=== PATIENT | male | born 1950 | race Caucasian/White ===

== ENCOUNTER → 2016-08-09 | Outpatient (CLI) | payer BC ==
--- NOTE | 2016-08-09 13:08 | MR ---
EXAMINATION TYPE: MR lumbar spine wo con DATE OF EXAM: 08/09/2016 10:56 AM COMPARISON: NONE HISTORY: lumbago CONTRAST: 0 mL intravenous MultiHance. TECHNIQUE: Multiplanar, multisequence images of the lumbar spine were acquired. FINDINGS: L5-S1: No significant disc bulge or disc herniation. No spinal canal stenosis. No foraminal stenosi s. . L4-L5: No significant disc bulge or disc herniation. No spinal canal stenosis. No foraminal stenosi s. . L3-L4: No significant disc bulge or disc herniation. No spinal canal stenosis. No foraminal stenosi s. . L2-L3: No significant disc bulge or disc herniation. No spinal canal stenosis. No foraminal stenosi s. . L1-L2: There is loss of disc height is level. No spinal canal stenosis. No foraminal stenosis. . T12-L1: Mild disc space narrowing is present is level. The cord terminates at the T12 level No spina l canal stenosis. No foraminal stenosis. . IMPRESSION: 1. Mild degenerative disc changes with loss of disc height T12-L1 and L1-2.
== END | disposition home or self-care (01) ==
LOC: RADMRIMAIN 10:16
PROVIDERS: ATTEND Psychiatry & Neurology Neurology
DX: M51.35 Other intervertebral disc degeneration, thoracolumbar region (principal)
CPT/HCPCS: 72148

== ENCOUNTER 2017-10-14 13:30 | Inpatient (IN) | payer BC ==
[2017-10-14] MEDS ORDERED: LIDOCAINE 2% INJ 20 MG/ML (20 ML MDV) ONE (17:15)
[2017-10-14] MEDS ORDERED: HEPARIN SODIUM,PORCINE 30 ML 30 ML ONE (17:16)
[2017-10-14 17:27] LABS: Glucose,Whole Blood 233 mg/dL (75-99)
[2017-10-14] MEDS ORDERED: ASPIRIN 325 MG TAB PO ONE (17:30)
[2017-10-14] MEDS ORDERED: VERAPAMIL 2.5 MG/ML 2 ML AMP ONE (17:37)
[2017-10-14] MEDS ORDERED: MIDAZOLAM 2 MG/2 ML VIAL ONE (17:37)
[2017-10-14] MEDS ORDERED: HEPARIN SODIUM 1,000 UN/ML (10ML VL) ONE (17:38)
[2017-10-14] MEDS ORDERED: SODIUM CHLORIDE 0.9% 1,000 ML IV ONE (17:42)
[2017-10-14] MEDS ORDERED: MIDAZOLAM 2 MG/2 ML VIAL IVP ONE (17:49)
[2017-10-14] MEDS ORDERED: LIDOCAINE 2% INJ 20 MG/ML SQ ONE (17:49)
[2017-10-14] MEDS ORDERED: HEPARIN SODIUM 1,000 UN/ML (10ML VL) IV ONE (17:52)
[2017-10-14] MEDS ORDERED: VERAPAMIL SYRINGE (5 MG/10 ML) INTRAARTER ONE (17:52)
[2017-10-14] MEDS ORDERED: RX INFO: IV CONTRAST WAS GIVEN 1 EACH MISC MISCELLANE PRN (18:13)
[2017-10-14] MEDS ORDERED: SODIUM CHLORIDE 0.9% 1,000 ML IV SCH (18:15)
[2017-10-14] MEDS ORDERED: IOPAMIDOL-370 125ML BTL INJ ONE (18:16)
[2017-10-14 18:55] VITALS: BMI 29.6
--- NOTE | 2017-10-14 19:27 | CC ---
CARDIAC CATHETERIZATION REPORT DATE OF SERVICE: 10/14/2017 PERFORMING PHYSICIAN: Miller Hogan MD PROCEDURES PERFORMED: 1. Selective right and left coronary angiogram. 2. Left heart catheterization. INDICATION: This is a pleasant 67-year-old gentleman who sees Dr. Gomez in the office on a regular basis with a past medical history significant for coronary artery disease and known intermediate lesion involving the mid LAD based on heart catheterization that was performed in 2014. The FFR was performed at that point and came in to be non-ischemic at 0.84. He also has multiple comorbid conditions, including diabetes, hypertension and dyslipidemia. He was admitted to [facility] with shortness of breath and chest discomfort. He was experiencing exertional chest discomfort even with minimal activity. In view of that, heart catheterization was recommended. APPROACH: Right radial artery. COMPLICATIONS: None. LEVEL OF SEDATION: Moderate with sedation length of 21 minutes. PROCEDURE DESCRIPTION: After obtaining informed consent, the patient was brought to the cardiac dairy and food laboratory assistant. The right radial artery was cannulated using micropuncture technique. The micropuncture wire passed easily. Then I placed a 6-Stateless sheath in the right radial artery. After that I gave the patient 2 mg of verapamil IA and 8000 units of heparin IV. I did selective right and left coronary angiogram using JR4 and JL3.5 catheters. I did left heart catheterization using 6-Stateless pigtail catheter. The procedure was completed without any complication. SELECTIVE CORONARY ANGIOGRAM: 1. The RCA is a large-caliber vessel and it is a dominant vessel. The proximal RCA appeared to be angiographically normal. The mid RCA is normal and gives rise to a medium-sized acute marginal branch. The RCA distally is normal and bifurcates into PDA and PLV branches. Both are angiographically normal. 2. The left main is angiographically normal but it is a short left main. It bifurcates into left circumflex, ramus intermedius and left anterior descending artery. 3. The left circumflex is a medium-caliber vessel and it is a non-dominant vessel. The left circumflex has mild disease in the mid portion. Proximally it gives rise to the first obtuse marginal branch, which is a medium-caliber vessel with mild disease only. In the mid portion it gives rise to a second OM branch, which is a moderate-caliber vessel with mild to moderate disease in the proximal portion. The left circumflex continues after that as a small-caliber vessel in the AV groove. 4. The ramus intermedius is a medium-caliber vessel with mild disease only. 5. The LAD: The proximal LAD is angiographically normal and gives rise to a large first diagonal branch seems to be angiographically normal. The mid LAD has a lesion that seems to be eccentric, in the range of 50%. The LAD by that lesion gives rise to a second diagonal branch which is a moderate-caliber vessel with mild disease only, and the LAD distally is angiographically normal. HEMODYNAMICS: The left ventricular end-diastolic pressure was 20 mmHg, and no gradient was identified across the aortic valve. CONCLUSION: 1. Intermediate disease involving the mid LAD that seems to be unchanged compared to before angiographically. 2. Elevated left ventricular end-diastolic pressure. POST-PROCEDURE MANAGEMENT: 1. Continue maximized medical treatment. 2. Start the patient on oral . 3. Follow up with the patient. MMODL / IJN: [id number] /
[2017-10-14 20:39] LABS: Glucose,Whole Blood 133 mg/dL (75-99)
[2017-10-14] MEDS: Insulin Aspart (For Pump) 100 UNIT/ML VIAL SQ-PUMP SCH (23:44)
[2017-10-15] MEDS: ALBUTEROL NEBULIZED 2.5 MG/3 ML INHALATION PRN ×2 (03:16→08:46)
[2017-10-15 06:04] LABS: Glucose,Whole Blood 120 mg/dL (75-99)
[2017-10-15] MEDS: PANTOPRAZOLE 40 MG TABLET PO SCH (06:05)
[2017-10-15] MEDS: amLODIPine 5 MG TAB PO SCH (06:10)
[2017-10-15] MEDS: LISINOPRIL 10 MG TAB PO SCH (06:10)
[2017-10-15] MEDS: LISINOPRIL 20 MG TAB PO SCH (06:11)
[2017-10-15] MEDS: FUROSEMIDE 40 MG TAB PO SCH (06:11)
[2017-10-15 07:08] LABS: HCT 38.4 % (39.0-53.0); MCH 29.4 pg (25.0-35.0); MCHC 33.8 g/dL (31.0-37.0); MCV 86.8 fL (80.0-100.0); Mean Platelet Volume 6.8; Platelet Count 215 k/uL (150-450); RBC 4.43 m/uL (4.30-5.90); RDW 14.9 % (11.5-15.5); WBC 15.6 k/uL (3.8-10.6)
[2017-10-15] MEDS: SYMBICORT 160-4.5 MCG INHALER INHALATION SCH ×2 (07:08→20:09)
[2017-10-15 07:38] LABS: Anion Gap 11 mmol/L; Blood Urea Nitrogen 34 mg/dL (9-20); Calcium 9.1 mg/dL (8.4-10.2); Carbon Dioxide 26 mmol/L (22-30); Chloride 106 mmol/L (98-107); Glucose 84 mg/dL (74-99); Potassium 4.2 mmol/L (3.5-5.1); Sodium 143 mmol/L (137-145)
[2017-10-15] MEDS ORDERED: ISOSORBIDE MONONITRATE ER 30 MG TAB.ER.24H PO SCH (09:00)
[2017-10-15] MEDS ORDERED: methylPREDNISolone SOD SUCCI 125 MG/2 ML VIAL IV STA (10:01)
[2017-10-15] MEDS ORDERED: predniSONE 20 MG TAB PO SCH (10:15)
[2017-10-15] MEDS: ALBUTEROL NEBULIZED 2.5 MG/3 ML INHALATION SCH ×3 (10:49→20:09)
--- NOTE | 2017-10-15 10:53 | P.HPIM ---
History of Present Illness H&P Date: 10/15/17 This is a 67-year-old male patient of Dr. Jack with past medical history for COPD, celiac disease, diabetes mellitus type 2, hepatitis C history , hypertension, known coronary artery disease. Patient was admitted to the hospital at [facility] on October 11 due to increasing shortness of breath worsening with exertion along with orthopnea and PND for the past 2 days and using 2 pillows at night. He follows with Dr. Gomez his seismograph recorder and Dr. Garcia, pastoral counselor. Patient was seen by his primary care physician and had an EKG done that showed some changes in the inferior lateral leads and patient was instructed to come in the hospital for further evaluation. Patient was initially started on heparin drip for angina and subsequent restarted on Solu-Medrol for COPD exacerbation patient was maintained on nebulizer treatments the patient continued to have chest pain for which and or was increased to 60 mg and Coreg was added. He was followed by cardiology and recommended the patient undergo heart catheterization. His chest x-ray at [facility] showed COPD. He underwent a heart catheterization that showed intermediate disease involving the mid LAD that seems unchanged compared to previous angiographically. Elevated left ventricular end-diastolic pressure. Recommendations from cardiology was to maximize medical treatment. We have maintained him on Coreg and increase dose of Imdur. Patient continues to have shortness of breath for which we'll add in consult with Dr. CHRIS Watson which is his pulmonary doctor. Patient was seen by Dr. Seay at [facility]. We'll also give a stat dose of Solu-Medrol and continue oral prednisone for tomorrow, scheduled nebulizer treatments and as needed and antibiotics started. Review of Systems All systems: negative Constitutional: Denies chills, Denies fever Eyes: denies blurred vision, denies pain Ears, nose, mouth and throat: Denies headache, Denies sore throat Cardiovascular: Reports decreased exercise tolerance, Reports orthopnea, Reports paroxysmal nocturnal dyspnea, Reports shortness of breath, Denies chest pain, Denies leg edema, Denies syncope Respiratory: Reports dyspnea, Denies cough, Denies home oxygen Gastrointestinal: Denies abdominal pain, Denies diarrhea, Denies nausea, Denies vomiting Musculoskeletal: Denies myalgias Integumentary: Denies pruritus, Denies rash Neurological: Denies numbness, Denies weakness Psychiatric: Denies anxiety, Denies depression Endocrine: Denies fatigue, Denies weight change Past Medical History Past Medical History: Chest Pain / Angina, COPD, Diabetes Mellitus, Hyperlipidemia, Hypertension Additional Past Medical History / Comment(s): PT HAS INSULIN PUMP, HX CELIAC'S DISEASE COMES & GOES NO RX, history of hepatitis C, psoriasis, peripheral vascular disease, diverticulosis History of Any Multi-Drug Resistant Organisms: None Reported Past Surgical History: Adenoidectomy, Cholecystectomy, Ear Surgery, Heart Catheterization, Tonsillectomy Additional Past Surgical History / Comment(s): Heart cath NO stent 10/14/2017. Past Anesthesia/Blood Transfusion Reactions: No Reported Reaction Past Psychological History: No Psychological Hx Reported Smoking Status: Former smoker Past Alcohol Use History: Rare Additional Past Alcohol Use History / Comment(s): Patient was a smoker of one to one and half packs per day for 30 years and quit 2 years ago. He drinks alcohol rarely. He denies any marijuana or street drug use. He is and lives at home with his . Past Drug Use History: None Reported - Past Family History Father Family Medical History: Cancer Additional Family Medical History / Comment(s): Father at age 72 from stomach cancer. Brother(s) Family Medical History: Diabetes Mellitus Additional Family Medical History / Comment(s): Patient has 2 brothers and one has history of diabetes and coronary artery disease. Mother Additional Family Medical History / Comment(s): Mother at age 88 from old age with history of carotid artery disease. Daughter(s) Additional Family Medical History / Comment(s): Patient has a total of 6 children. One daughter recently from consultations from diabetes. He does have a son with diabetes as well. Medications and Allergies Home Medications Medication Instructions Recorded Confirmed Type Albuterol Inhaler [Ventolin 1 - 2 puff INHALATION RT-Q6H PRN 05/06/14 10/14/17 History Inhaler] Budesonide-Formot 160-4.5 Mcg 2 puff INHALATION RT-BID 05/06/14 10/14/17 History [Symbicort 160-4.5 Mcg Inhaler] Montelukast [Singulair] 10 mg PO HS 05/06/14 10/14/17 History Pravastatin Sodium [Pravachol] 20 mg PO HS 05/06/14 10/14/17 History Isosorbide Mononitrate [Isosorbide 30 mg PO DAILY 11/24/14 10/14/17 History Mononitrate ER] Insulin Aspart (For Pump) [NovoLOG 0.01 unit SQ-PUMP CONTINUOUS 10/14/17 History (For Pump)] Lisinopril [Prinivil] 10 mg PO DAILY 10/14/17 10/14/17 History Omeprazole [PriLOSEC] 20 mg PO AC-BRKFST 10/14/17 10/14/17 History Ramipril [Altace] 10 mg PO DAILY 10/14/17 10/14/17 History amLODIPine [Norvasc] 5 mg PO DAILY 10/14/17 10/14/17 History Allergies Allergy/AdvReac Type Severity Reaction Status Date / Time amoxicillin trihydrate Allergy Severe Anaphylaxis Verified 10/14/17 20:45 [From Augmentin] potassium clavulanate Allergy Severe Anaphylaxis Verified 10/14/17 20:45 [From Augmentin] Physical Exam Vitals: Vital Signs Temp Pulse Pulse Pulse Resp BP BP 10/15/17 08:58 80 10/15/17 08:48 80 10/15/17 08:00 97.4 F L 80 18 142/67 10/15/17 06:07 67 188/90 10/15/17 03:39 98.3 F 88 22 175/84 10/15/17 03:29 88 10/15/17 03:19 82 10/15/17 00:00 97.3 F L 86 18 134/80 10/14/17 23:45 97.3 F L 86 18 134/80 10/14/17 21:58 80 18 143/80 10/14/17 20:58 72 18 158/81 10/14/17 20:25 76 18 172/81 10/14/17 20:00 18 10/14/17 19:55 96.9 F L 85 18 172/83 10/14/17 19:25 88 18 175/88 10/14/17 18:58 77 16 176/90 10/14/17 18:50 77 18 178/95 10/14/17 18:43 77 18 178/95 10/14/17 17:20 20 138/69 BP Pulse Ox 10/15/17 08:58 10/15/17 08:48 10/15/17 08:00 92 L 10/15/17 06:07 10/15/17 03:39 95 10/15/17 03:29 10/15/17 03:19 10/15/17 00:00 97 10/14/17 23:45 97 10/14/17 21:58 97 10/14/17 20:58 95 10/14/17 20:25 95 10/14/17 20:00 10/14/17 19:55 95 10/14/17 19:25 95 10/14/17 18:58 95 10/14/17 18:50 93 L 10/14/17 18:43 93 L 10/14/17 17:20 166/87 98 Intake and Output 10/14/17 10/15/17 10/15/17 22:59 06:59 14:59 Intake Total 415 1000 200 Balance 415 1000 200 Intake: IV 175 Intake, IV Titration 1000 Amount Sodium Chloride 0.9% 1, 1000 000 ml @ 100 mls/hr IV . Q10H [facility] Rx#:[id number] Oral 240 200 Other: Voiding Method Urinal Urinal Urinal # Voids 2 Weight 93.6 kg 94.8 kg Gen: This is a 67-year-old male patient. He appears to be somewhat anxious and slightly dyspneic HEENT: Head is atraumatic, normocephalic. Pupils equal, round. Sclerae is anicteric. NECK: Supple. No JVD. No lymphadenopathy. No thyromegaly. LUNGS: Decreased air exchange. No intercostal retractions. HEART: Regular rate and rhythm. No murmur. ABDOMEN: Soft. Bowel sounds are present. No masses. No tenderness. EXTREMITIES: No pedal edema. No calf tenderness. Patient has lesions from scratching the bilateral lower extremities secondary to underlying psoriasis. NEUROLOGICAL: Patient is awake, alert and oriented x3. Cranial nerves 2 through 12 are grossly intact. Results CBC & Chem 7: 10/15/17 06:42 10/15/17 06:42 Labs: Abnormal Lab Results - Last 24 Hours (Table) 10/14/17 10/14/17 10/15/17 Range/Units 17:19 20:38 06:03 WBC (3.8-10.6) k/uL Hct (39.0-53.0) % BUN (9-20) mg/dL POC Glucose (mg/dL) 233 H 133 H 120 H (75-99) mg/dL 10/15/17 10/15/17 Range/Units 06:42 06:42 WBC 15.6 H (3.8-10.6) k/uL Hct 38.4 L (39.0-53.0) % BUN 34 H (9-20) mg/dL POC Glucose (mg/dL) (75-99) mg/dL Thrombosis Risk Factor Assmnt - DVT/VTE Prophylaxis DVT/VTE Prophylaxis: Pharmacologic Prophylaxis ordered - Choose All That Apply Any of the Below Risk Factors Present?: Yes Each Factor Represents 1 point: Abnormal pulmonary function (COPD), Acute TN, Obesity (BMI >25) Other Risk Factors: Yes Each Risk Factor Represents 2 Points: Age 61-74 years Other congenital or acquired thrombophilia - If yes, enter type in comment: No Thrombosis Risk Factor Assessment Total Risk Factor Score: 5 Thrombosis Risk Factor Assessment Level: High Risk Assessment and Plan Plan: 1. Chest pain status post heart catheterization showing intermediate disease involving the mid LAD unchanged from prior study. Patient will be placed back on increased dose of Imdur 60 mg daily and Coreg 12.5 mg twice daily, pravastatin 20 mg at bedtime. 2. Acute exacerbation of COPD. Patient will be given 1 dose of IV Solu-Medrol and resumed on prednisone 60 mg daily for tomorrow. Ceftriaxone started for 1 dose and continue doxycycline. DuoNeb treatments changed to 4 times daily scheduled and as needed continue Symbicort twice daily. Consult with Dr. CHRIS Watson or Dr. Seay. Continue Singulair. 3. Hypertension. Continue Norvasc 5 mg daily, Coreg 12.5 mg twice daily, Lasix 40 mg daily, lisinopril 50 mg daily. 4. Hyperlipidemia. Continue pravastatin. 5. Psoriasis, not on DMARD. 6. Diabetes mellitus type 2. Patient is on insulin pump and follows with Dr. Garcia. 7. Gastrointestinal prophylaxis. Protonix. 8. DVT prophylaxis. Lovenox. Patient has been admitted as inpatient stay since October 11. Anticipate discharge in the next 24 hours. Discharge plan: Return home Impression and plan of care have been directed as dictated by the signing physician. Mirta Rdz nurse practitioner acting as scribe for signing physician.
[2017-10-15] MEDS: CARVEDILOL 12.5 MG TAB PO SCH ×2 (11:23→18:48)
[2017-10-15] MEDS: cefTRIAXone IN SWFI 1,000 MG/10 ML SYRINGE IVP SCH (11:24)
[2017-10-15] MEDS: DOXYCYCLINE MONOHYDRATE 100 MG CAPSULE PO SCH (11:24)
[2017-10-15 11:35] LABS: Glucose,Whole Blood 137 mg/dL (75-99)
--- NOTE | 2017-10-15 11:53 | P.CNPUL ---
History of Present Illness Consult date: 10/15/17 Requesting physician: Daquan Munoz Reason for consult: COPD History of present illness: Daquan Solo is a 67 y.o. male presented to the emergency department at [facility] complaining of chest pain and shortness of breath with exertion. The patient states this has been ongoing for the past several months but seemed to have worsened in the past several days. The patient does have a known history of COPD as well as coronary artery disease. The patient states that he continues to smoke. He smokes about a half a pack per day since the age of 14. He does follow with Dr. CHRIS Watson in the office. He did have an intermittent cough which is productive of a small amount of phlegm. He states that he was smoking cigarettes from [place].he states his chest pain improves with rest. The patient did apparently have EKG changes at his primary care physician's office. He was subsequently sent to the emergency room. After cardiology workup the patient was ultimatly transfered to [facility] for cardiac cath , please see those notes for details. Upon examination the patient is resting up in bed on room air. He states he is feeling better today. He denies any chest pain at this time. Review of Systems 14 point review of systems was completed and is negative other than above in the HPI. Past Medical History Past Medical History: Chest Pain / Angina, COPD, Diabetes Mellitus, Hyperlipidemia, Hypertension Additional Past Medical History / Comment(s): PT HAS INSULIN PUMP, HX CELIAC'S DISEASE COMES & GOES NO RX, history of hepatitis C, psoriasis, peripheral vascular disease, diverticulosis History of Any Multi-Drug Resistant Organisms: None Reported Past Surgical History: Adenoidectomy, Cholecystectomy, Ear Surgery, Heart Catheterization, Tonsillectomy Additional Past Surgical History / Comment(s): Heart cath NO stent 10/14/2017. Past Anesthesia/Blood Transfusion Reactions: No Reported Reaction Past Psychological History: No Psychological Hx Reported Smoking Status: Former smoker Past Alcohol Use History: Rare Additional Past Alcohol Use History / Comment(s): Patient was a smoker of one to one and half packs per day for 30 years and quit 2 years ago. He drinks alcohol rarely. He denies any marijuana or street drug use. He is and lives at home with his . Past Drug Use History: None Reported - Past Family History Mother Additional Family Medical History / Comment(s): Mother at age 88 from old age with history of carotid artery disease. Daughter(s) Additional Family Medical History / Comment(s): Patient has a total of 6 children. One daughter recently from consultations from diabetes. He does have a son with diabetes as well. Father Family Medical History: Cancer Additional Family Medical History / Comment(s): Father at age 72 from stomach cancer. Brother(s) Family Medical History: Diabetes Mellitus Additional Family Medical History / Comment(s): Patient has 2 brothers and one has history of diabetes and coronary artery disease. Medications and Allergies Home Medications Medication Instructions Recorded Confirmed Type Albuterol Inhaler [Ventolin 1 - 2 puff INHALATION RT-Q6H PRN 05/06/14 10/14/17 History Inhaler] Budesonide-Formot 160-4.5 Mcg 2 puff INHALATION RT-BID 05/06/14 10/14/17 History [Symbicort 160-4.5 Mcg Inhaler] Montelukast [Singulair] 10 mg PO HS 05/06/14 10/14/17 History Pravastatin Sodium [Pravachol] 20 mg PO HS 05/06/14 10/14/17 History RX: Isosorbide Mononitrate 30 mg PO DAILY 11/24/14 10/14/17 History [Isosorbide Mononitrate ER] Insulin Aspart (For Pump) [NovoLOG 0.01 unit SQ-PUMP CONTINUOUS 10/14/17 History (For Pump)] Lisinopril [Prinivil] 10 mg PO DAILY 10/14/17 10/14/17 History Omeprazole [PriLOSEC] 20 mg PO AC-BRKFST 10/14/17 10/14/17 History Ramipril [Altace] 10 mg PO DAILY 10/14/17 10/14/17 History amLODIPine [Norvasc] 5 mg PO DAILY 10/14/17 10/14/17 History Allergies Allergy/AdvReac Type Severity Reaction Status Date / Time amoxicillin trihydrate Allergy Severe Anaphylaxis Verified 10/14/17 20:45 [From Augmentin] potassium clavulanate Allergy Severe Anaphylaxis Verified 10/14/17 20:45 [From Augmentin] Physical Exam Vitals: Vital Signs Temp Pulse Pulse Pulse Resp BP BP 10/15/17 11:28 75 17 160/88 10/15/17 11:03 80 10/15/17 10:53 76 10/15/17 08:58 80 10/15/17 08:48 80 10/15/17 08:00 97.4 F L 80 18 142/67 10/15/17 06:07 67 188/90 10/15/17 03:39 98.3 F 88 22 175/84 10/15/17 03:29 88 10/15/17 03:19 82 10/15/17 00:00 97.3 F L 86 18 134/80 10/14/17 23:45 97.3 F L 86 18 134/80 10/14/17 21:58 80 18 143/80 10/14/17 20:58 72 18 158/81 10/14/17 20:25 76 18 172/81 10/14/17 20:00 18 10/14/17 19:55 96.9 F L 85 18 172/83 10/14/17 19:25 88 18 175/88 10/14/17 18:58 77 16 176/90 10/14/17 18:50 77 18 178/95 10/14/17 18:43 77 18 178/95 10/14/17 17:20 20 138/69 BP Pulse Ox 10/15/17 11:28 92 L 10/15/17 11:03 10/15/17 10:53 10/15/17 08:58 10/15/17 08:48 10/15/17 08:00 92 L 10/15/17 06:07 10/15/17 03:39 95 10/15/17 03:29 10/15/17 03:19 10/15/17 00:00 97 10/14/17 23:45 97 10/14/17 21:58 97 10/14/17 20:58 95 10/14/17 20:25 95 10/14/17 20:00 10/14/17 19:55 95 10/14/17 19:25 95 10/14/17 18:58 95 10/14/17 18:50 93 L 10/14/17 18:43 93 L 10/14/17 17:20 166/87 98 Intake and Output 10/14/17 10/15/17 10/15/17 22:59 06:59 14:59 Intake Total 415 1000 200 Balance 415 1000 200 Intake: IV 175 Intake, IV Titration 1000 Amount Sodium Chloride 0.9% 1, 1000 000 ml @ 100 mls/hr IV . Q10H [facility] Rx#:[id number] Oral 240 200 Other: Voiding Method Urinal Urinal Urinal # Voids 2 Weight 93.6 kg 94.8 kg GENERAL EXAM: Alert, active, comfortable in no apparent distress. HEAD: Normocephalic. EYES: Normal reaction of pupils, equal size. NOSE: Clear with pink turbinates. THROAT: No erythema or exudates. NECK: No masses, no JVD. CHEST: No chest wall deformity. LUNGS: Equal air entry with few scattered wheezes on the right side. CVS: S1 and S2 normal with no audible mumurs, regular rhythm. ABDOMEN: No hepatosplenomegaly, normal bowel sounds, no guarding or rigidity. EXTREMITIES: No edema noted, pedal pulses palpable. CENTRAL NERVOUS SYSTEM: No focal deficits, tone is normal in all 4 extremities. Results - Laboratory Findings CBC and BMP: 10/15/17 06:42 10/15/17 06:42 Abnormal lab findings: Abnormal Labs 10/14/17 10/14/17 10/15/17 17:19 20:38 06:03 WBC Hct BUN POC Glucose (mg/dL) 233 H 133 H 120 H 10/15/17 10/15/17 10/15/17 06:42 06:42 11:33 WBC 15.6 H Hct 38.4 L BUN 34 H POC Glucose (mg/dL) 137 H Assessment and Plan Assessment: Assessment Acute exacerbation of COPD Acute exacerbation of severe persistent allergic asthma Active tobacco abuse Tracheobronchitis Moderate pulmonary hypertension with RVSP 66 mmHg Chest pain, concerning for exertional angina Diabetes mellitus Hypertension, uncontrolled History of coronary artery disease Dyslipidemia Psoriasis Hepatitis C History of celiac disease Plan CTA negative for PE at [facility] Cardiology recommendations - possible heart cath BP and BS control Duonebs, Pulmicort Solumedrol taper ABX: Doxycycline Singulair Sputum culture - normal jodie Incentive spirometry Pending~IgE/HP/Allergy panel Smoking cessation GI and DVT prophylaxis I performed an examination of the patient and discussed their management with the nurse practitioner. I have reviewed the nurse practitioner's note and agree with the documented findings and plan of care.
[2017-10-15 17:24] LABS: Glucose,Whole Blood 164 mg/dL (75-99)
[2017-10-15 21:25] LABS: Glucose,Whole Blood 122 mg/dL (75-99)
[2017-10-16] MEDS: Insulin Aspart (For Pump) 100 UNIT/ML VIAL SQ-PUMP SCH ×2 (00:01→23:45)
[2017-10-16 07:02] LABS: Glucose,Whole Blood 273 mg/dL (75-99)
[2017-10-16] MEDS: DOXYCYCLINE MONOHYDRATE 100 MG CAPSULE PO SCH ×3 (08:11→22:13)
[2017-10-16] MEDS: PANTOPRAZOLE 40 MG TABLET PO SCH (08:12)
[2017-10-16] MEDS: LISINOPRIL 20 MG TAB PO SCH (08:12)
[2017-10-16] MEDS: LISINOPRIL 10 MG TAB PO SCH (08:12)
[2017-10-16] MEDS: FUROSEMIDE 40 MG TAB PO SCH (08:14)
[2017-10-16] MEDS: predniSONE 20 MG TAB PO SCH (08:14)
[2017-10-16] MEDS: amLODIPine 5 MG TAB PO SCH (08:14)
[2017-10-16] MEDS: CARVEDILOL 12.5 MG TAB PO SCH (08:50)
[2017-10-16] MEDS: cefTRIAXone IN SWFI 1,000 MG/10 ML SYRINGE IVP SCH (08:51)
[2017-10-16] MEDS ORDERED: ISOSORBIDE MONONITRATE ER 60 MG TAB.ER.24H PO SCH (09:00)
[2017-10-16] MEDS: SYMBICORT 160-4.5 MCG INHALER INHALATION SCH ×2 (09:11→19:33)
[2017-10-16] MEDS: ALBUTEROL NEBULIZED 2.5 MG/3 ML INHALATION SCH ×4 (09:12→19:32)
--- NOTE | 2017-10-16 10:07 | P.PN ---
Subjective Mr. Solo is a pleasant 67-year-old male past medical history significant for diabetes mellitus, hypertension, dyslipidemia, COPD and intermediate coronary artery disease of mid-LAD. He was initially admitted to [facility] with symptoms of shortness of breath, orhopnea and PND. Prior to transfer here for catheterization imdur was increase to 60 mg daily and coreg was added at 12.5mg BID. He underwent cardiac catheterization with Dr. Hogan Saturday that revealed intermediate disease involving the mid LAD, unchanged from previous catheterization with elevated LVDP at 20 mmHg. This was done via radial approach. He is currently on carvedilol 12.5 mg BID, imdur 60 mg daily, lasix 40 mg daily, pravastatin 20 mg daily and lisinopril 50 mg daily. He has had episodes of bradycardia noted on telemetry 3 times in the last 24 hrs. Each time he is awake and talking to the staff. He describes feeling mildly dizzy during these episodes. Denies symptoms of chest pain, palpitations, shortness of breath, nausea, vomiting or diaphoresis. These episodes last less then 30 seconds and resolve on their own with no specific alleviating factors. Pulmonology is following as well for COPD. Blood pressure 166/74 heart rate 69 afebrile and maintaining oxygen saturation on room air. He denies chest pain, shortness of breath, nausea, vomiting, dizziness, palpitations or diaphoresis. TSH checked this morning is 1.33. Objective - Vital Signs Vital signs: Vital Signs Temp 97.6 F 10/16/17 06:18 Pulse 72 10/16/17 09:27 Resp 18 10/16/17 06:18 BP 166/74 10/16/17 06:18 Pulse Ox 94 L 10/16/17 06:18 Intake & Output 10/15/17 10/16/17 10/16/17 18:59 06:59 18:59 Intake Total 200 120 Balance 200 120 Weight 92.5 kg Intake: Oral 200 120 Other: Voiding Method Urinal Urinal Urinal # Voids 2 2 - Exam GENERAL: Well-appearing, well-nourished and in no acute distress. NECK: Supple without JVD or thyromegaly. LUNGS: Breath sounds clear to auscultation bilaterally. Respiration equal and unlabored. No wheezes, rales or rhonchi. Diminished bilaterally. HEART: Regular rate and rhythm without murmurs, rubs or gallops. S1 and S2 heard. EXTREMITIES: Normal range of motion, no edema. No clubbing or cyanosis. Peripheral pulses intact and strong. Right wrist clean, dry and intact, no hematoma, no ecchymosis, no numbness, tingling or pain. - Labs CBC & Chem 7: 10/15/17 06:42 10/15/17 06:42 Labs: Abnormal Lab Results - Last 24 Hours (Table) 10/15/17 10/15/17 10/15/17 Range/Units 11:33 17:22 21:23 POC Glucose (mg/dL) 137 H 164 H 122 H (75-99) mg/dL 10/16/17 Range/Units 07:01 POC Glucose (mg/dL) 273 H (75-99) mg/dL Assessment and Plan Assessment: ASSESSMENT 1. Intermediate coronary artery disease, on change from previous catheterization 2. Acute exacerbation of COPD 3. Hypertension 4. Dyslipidemia 5. Diabetes mellitus 6. Symptomatic bradycardia 7. Pulmonary hypertension, RVSP 66 mmHg PLAN Decrease dose of coreg to 6.25 mg PO BID. Continue to monitor on telemetry for arrhythmia and bradycardia for another 24 hours. Nurse Practitioner note has been reviewed, I agree with a documented findings and plan of care. Patient was seen and examined.
--- NOTE | 2017-10-16 10:17 | P.PN ---
Subjective Progress Note Date: 10/16/17 Principal diagnosis: Chest pain HPI: Daquan Solo is a 67 y.o. male presented to the emergency department at [facility] complaining of chest pain and shortness of breath with exertion. The patient states this has been ongoing for the past several months but seemed to have worsened in the past several days. The patient does have a known history of COPD as well as coronary artery disease. The patient states that he continues to smoke. He smokes about a half a pack per day since the age of 14. He does follow with Dr. CHRIS Watson in the office. He did have an intermittent cough which is productive of a small amount of phlegm. He states that he was smoking cigarettes from [place].he states his chest pain improves with rest. The patient did apparently have EKG changes at his primary care physician's office. He was subsequently sent to the emergency room. After cardiology workup the patient was ultimatly transfered to [facility] for cardiac cath , please see those notes for details. Upon examination the patient is resting up in bed on room air. He states he is feeling better today. He denies any chest pain at this time. 10/16/2017: Patient seen and examined. Patient has been ambulating in the bal and states his breathing is much better. He states he can't ambulate much further without shortness of breath. He is hoping to go home soon. His heart rate apparently dropped into the 30s today and cardiology is adjusting his medications. He states his breathing is otherwise at baseline. Objective - Vital Signs Vital signs: Vital Signs Temp 97.6 F 10/16/17 06:18 Pulse 72 10/16/17 09:27 Resp 18 10/16/17 06:18 BP 166/74 10/16/17 06:18 Pulse Ox 94 L 10/16/17 06:18 Intake & Output 10/15/17 10/16/17 10/16/17 18:59 06:59 18:59 Intake Total 200 120 Balance 200 120 Weight 92.5 kg Intake: Oral 200 120 Other: Voiding Method Urinal Urinal Urinal # Voids 2 2 - Exam GENERAL EXAM: Alert, active, comfortable in no apparent distress. HEAD: Normocephalic. EYES: Normal reaction of pupils, equal size. NOSE: Clear with pink turbinates. THROAT: No erythema or exudates. NECK: No masses, no JVD. CHEST: No chest wall deformity. LUNGS: Equal air entry with few scattered wheezes on the right side. CVS: S1 and S2 normal with no audible mumurs, regular rhythm. ABDOMEN: No hepatosplenomegaly, normal bowel sounds, no guarding or rigidity. EXTREMITIES: No edema noted, pedal pulses palpable. CENTRAL NERVOUS SYSTEM: No focal deficits, tone is normal in all 4 extremities. - Labs CBC & Chem 7: 10/15/17 06:42 10/15/17 06:42 Labs: Abnormal Lab Results - Last 24 Hours (Table) 10/15/17 10/15/17 10/15/17 Range/Units 11:33 17:22 21:23 POC Glucose (mg/dL) 137 H 164 H 122 H (75-99) mg/dL 10/16/17 Range/Units 07:01 POC Glucose (mg/dL) 273 H (75-99) mg/dL Assessment and Plan Assessment: Assessment Acute exacerbation of COPD Acute exacerbation of severe persistent allergic asthma Active tobacco abuse Tracheobronchitis Moderate pulmonary hypertension with RVSP 66 mmHg Chest pain, concerning for exertional angina Diabetes mellitus Hypertension, uncontrolled History of coronary artery disease Dyslipidemia Psoriasis Hepatitis C History of celiac disease Plan CTA negative for PE at [facility] Cardiology recommendations - adjusting coreg BP and BS control Duonebs, Pulmicort Solumedrol - switch to PO Prednisone ABX: Doxycycline Singulair Sputum culture - normal jodie Incentive spirometry Pending~IgE/HP/Allergy panel Smoking cessation GI and DVT prophylaxis Respiratory status is improving. Ok to DC from pulmonary standpoint once HR is controlled.
[2017-10-16 12:03] LABS: Glucose,Whole Blood 121 mg/dL (75-99)
[2017-10-16 17:20] LABS: Glucose,Whole Blood 166 mg/dL (75-99)
[2017-10-16] MEDS: CARVEDILOL 3.125 MG TAB PO SCH (17:26)
[2017-10-16] MEDS ORDERED: CARVEDILOL 6.25 MG TAB PO SCH (17:30)
[2017-10-16 20:19] LABS: Glucose,Whole Blood 274 mg/dL (75-99)
[2017-10-16 21:53] VITALS: TEMP 97.5
[2017-10-16] MEDS: MONTELUKAST 10 MG TAB PO SCH ×2 (22:13)
[2017-10-16] MEDS: PRAVASTATIN SODIUM 20 MG TAB PO SCH ×2 (22:13)
[2017-10-17 05:51] VITALS: RESP 16
[2017-10-17 06:12] VITALS: BP 143/73
[2017-10-17 06:52] LABS: Glucose,Whole Blood 127 mg/dL (75-99)
[2017-10-17] MEDS: SYMBICORT 160-4.5 MCG INHALER INHALATION SCH (07:05)
[2017-10-17] MEDS: ALBUTEROL NEBULIZED 2.5 MG/3 ML INHALATION SCH (07:05)
[2017-10-17 07:08] VITALS: PULSE 56
[2017-10-17] MEDS ORDERED: ISOSORBIDE MONONITRATE ER 30 MG TAB.ER.24H PO SCH (09:00)
[2017-10-17] MEDS ORDERED: ISOSORBIDE MONONITRATE ER 60 MG TAB.ER.24H PO SCH (09:00)
[2017-10-17] MEDS: cefTRIAXone IN SWFI 1,000 MG/10 ML SYRINGE IVP SCH ×2 (09:37→09:49)
[2017-10-17] MEDS: CARVEDILOL 3.125 MG TAB PO SCH (09:38)
[2017-10-17] MEDS: predniSONE 20 MG TAB PO SCH (09:38)
[2017-10-17] MEDS: PANTOPRAZOLE 40 MG TABLET PO SCH (09:38)
[2017-10-17] MEDS: LISINOPRIL 10 MG TAB PO SCH ×2 (09:39→09:42)
[2017-10-17] MEDS: FUROSEMIDE 40 MG TAB PO SCH (09:39)
[2017-10-17] MEDS: DOXYCYCLINE MONOHYDRATE 100 MG CAPSULE PO SCH (09:39)
[2017-10-17] MEDS: amLODIPine 5 MG TAB PO SCH (09:39)
[2017-10-17] MEDS: LISINOPRIL 20 MG TAB PO SCH (09:42)
--- NOTE | 2017-10-17 10:33 | P.PN ---
Subjective Progress Note Date: 10/17/17 HPI: Daquan Solo is a 67 y.o. male presented to the emergency department at [facility] complaining of chest pain and shortness of breath with exertion. The patient states this has been ongoing for the past several months but seemed to have worsened in the past several days. The patient does have a known history of COPD as well as coronary artery disease. The patient states that he continues to smoke. He smokes about a half a pack per day since the age of 14. He does follow with Dr. CHRIS Watson in the office. He did have an intermittent cough which is productive of a small amount of phlegm. He states that he was smoking cigarettes from [place].he states his chest pain improves with rest. The patient did apparently have EKG changes at his primary care physician's office. He was subsequently sent to the emergency room. After cardiology workup the patient was ultimatly transfered to [facility] for cardiac cath , please see those notes for details. Upon examination the patient is resting up in bed on room air. He states he is feeling better today. He denies any chest pain at this time. 10/16/2017: Patient seen and examined. Patient has been ambulating in the bal and states his breathing is much better. He states he can't ambulate much further without shortness of breath. He is hoping to go home soon. His heart rate apparently dropped into the 30s today and cardiology is adjusting his medications. He states his breathing is otherwise at baseline. 10/17/17- patient is being seen examined and evaluated today on rounds. He is resting up in his room on room air. He has been ambulating frequently. The patient states he feels significantly better. He is requesting to go home. Feels his breathing is at baseline. He denies any further complaints. Objective - Vital Signs Vital signs: Vital Signs Temp 97.5 F L 10/17/17 05:30 Pulse 56 L 10/17/17 07:19 Resp 16 10/17/17 05:30 BP 143/73 10/17/17 05:30 Pulse Ox 98 10/17/17 07:06 Intake & Output 10/16/17 10/17/17 10/17/17 18:59 06:59 18:59 Intake Total 1090 Balance 1090 Intake: Oral 1090 Other: Voiding Method Urinal Toilet Toilet # Voids 3 1 - Exam GENERAL EXAM: Alert, active, comfortable in no apparent distress. HEAD: Normocephalic. EYES: Normal reaction of pupils, equal size. NOSE: Clear with pink turbinates. THROAT: No erythema or exudates. NECK: No masses, no JVD. CHEST: No chest wall deformity. LUNGS: Equal air entry with few scattered wheezes on the right side. CVS: S1 and S2 normal with no audible mumurs, regular rhythm. ABDOMEN: No hepatosplenomegaly, normal bowel sounds, no guarding or rigidity. EXTREMITIES: No edema noted, pedal pulses palpable. CENTRAL NERVOUS SYSTEM: No focal deficits, tone is normal in all 4 extremities. - Labs CBC & Chem 7: 10/15/17 06:42 10/15/17 06:42 Labs: Abnormal Lab Results - Last 24 Hours (Table) 10/16/17 10/16/17 10/16/17 Range/Units 12:01 17:19 20:17 POC Glucose (mg/dL) 121 H 166 H 274 H (75-99) mg/dL 10/17/17 Range/Units 06:50 POC Glucose (mg/dL) 127 H (75-99) mg/dL Assessment and Plan Assessment: Assessment Acute exacerbation of COPD Acute exacerbation of severe persistent allergic asthma Active tobacco abuse Tracheobronchitis Moderate pulmonary hypertension with RVSP 66 mmHg Chest pain, concerning for exertional angina Diabetes mellitus Hypertension, uncontrolled History of coronary artery disease Dyslipidemia Psoriasis Hepatitis C History of celiac disease Plan Patient is cleared for discharge from a pulmonary standpoint. Steroid taper on discharge CTA negative for PE at [facility] Cardiology recommendations - adjusting coreg BP and BS control Duonebs, Pulmicort ABX: Doxycycline Singulair Sputum culture - normal jodie Incentive spirometry Pending~IgE/HP/Allergy panel Smoking cessation GI and DVT prophylaxis I performed an examination of the patient and discussed their management with the nurse practitioner. I have reviewed the nurse practitioner's note and agree with the documented findings and plan of care.
--- NOTE | 2017-10-17 13:44 | P.PN ---
Subjective Progress Note Date: 10/16/17 This is a 67-year-old male patient of Dr. Jack with past medical history for COPD, celiac disease, diabetes mellitus type 2, hepatitis C history , hypertension, known coronary artery disease. Patient was admitted to the hospital at [facility] on October 11 due to increasing shortness of breath worsening with exertion along with orthopnea and PND for the past 2 days and using 2 pillows at night. He follows with Dr. Gomez his outpatient psychiatrist and Dr. Garcia, building admin. Patient was seen by his primary care physician and had an EKG done that showed some changes in the inferior lateral leads and patient was instructed to come in the hospital for further evaluation. Patient was initially started on heparin drip for angina and subsequent restarted on Solu-Medrol for COPD exacerbation patient was maintained on nebulizer treatments the patient continued to have chest pain for which and or was increased to 60 mg and Coreg was added. He was followed by cardiology and recommended the patient undergo heart catheterization. His chest x-ray at [facility] showed COPD. He underwent a heart catheterization that showed intermediate disease involving the mid LAD that seems unchanged compared to previous angiographically. Elevated left ventricular end-diastolic pressure. Recommendations from cardiology was to maximize medical treatment. We have maintained him on Coreg and increase dose of Imdur. Patient continues to have shortness of breath for which we'll add in consult with Dr. CHRIS Watson which is his pulmonary doctor. Patient was seen by Dr. Seay at [facility]. We'll also give a stat dose of Solu-Medrol and continue oral prednisone for tomorrow, scheduled nebulizer treatments and as needed and antibiotics started. 10/16: Patient has heart rate running in the 30s and 40s. Cardiology has decreased Coreg to 6.25 mg twice daily. Patient has been afebrile, breathing sounds are improving. Pulse ox is 94% on room air. Patient does have hyperglycemia secondary to steroids. He is continued on prednisone 60 mg daily. Patient is followed by Dr. Seay Anticipate discharge home tomorrow. Objective - Vital Signs Vital signs: Vital Signs Temp 97.6 F 10/16/17 06:18 Pulse 70 10/16/17 09:12 Resp 18 10/16/17 06:18 BP 166/74 10/16/17 06:18 Pulse Ox 94 L 10/16/17 06:18 Intake & Output 10/15/17 10/16/17 10/16/17 18:59 06:59 18:59 Intake Total 200 120 Balance 200 120 Weight 92.5 kg Intake: Oral 200 120 Other: Voiding Method Urinal Urinal Urinal # Voids 2 2 - Exam Gen: This is a 67-year-old male patient. He appears to be somewhat anxious and slightly dyspneic HEENT: Head is atraumatic, normocephalic. Pupils equal, round. Sclerae is anicteric. NECK: Supple. No JVD. No lymphadenopathy. No thyromegaly. LUNGS: Decreased air exchange. No intercostal retractions. HEART: Regular rate and rhythm. No murmur. ABDOMEN: Soft. Bowel sounds are present. No masses. No tenderness. EXTREMITIES: No pedal edema. No calf tenderness. Patient has lesions from scratching the bilateral lower extremities secondary to underlying psoriasis. NEUROLOGICAL: Patient is awake, alert and oriented x3. Cranial nerves 2 through 12 are grossly intact. - Labs CBC & Chem 7: 10/15/17 06:42 10/15/17 06:42 Labs: Abnormal Lab Results - Last 24 Hours (Table) 10/15/17 10/15/17 10/15/17 Range/Units 11:33 17:22 21:23 POC Glucose (mg/dL) 137 H 164 H 122 H (75-99) mg/dL 10/16/17 Range/Units 07:01 POC Glucose (mg/dL) 273 H (75-99) mg/dL Assessment and Plan Plan: 1. Chest pain status post heart catheterization showing intermediate disease involving the mid LAD unchanged from prior study. Patient will be placed back on increased dose of Imdur 60 mg daily and decreased to 6.25 mg twice daily due to bradycardia, pravastatin 20 mg at bedtime. 2. Acute exacerbation of COPD. Patient will be given 1 dose of IV Solu-Medrol and resumed on prednisone 60 mg daily for tomorrow. Ceftriaxone started for 1 dose and continue doxycycline. DuoNeb treatments changed to 4 times daily scheduled and as needed continue Symbicort twice daily. Consult with Dr. CHRIS Watson or Dr. Seay. Continue Singulair. 3. Hypertension. Continue Norvasc 5 mg daily, Coreg 12.5 mg twice daily, Lasix 40 mg daily, lisinopril 50 mg daily. 4. Hyperlipidemia. Continue pravastatin. 5. Psoriasis, not on DMARD. 6. Diabetes mellitus type 2. Patient is on insulin pump and follows with Dr. Garcia. 7. Gastrointestinal prophylaxis. Protonix. 8. DVT prophylaxis. Lovenox. Patient has been admitted as inpatient stay since October 11. Anticipate discharge in the next 24 hours. Discharge plan: Return home tomorrow Impression and plan of care have been directed as dictated by the signing physician. Mirta Rdz nurse practitioner acting as scribe for signing physician.
--- NOTE | 2017-10-17 13:48 | P.DS ---
Providers Date of admission: 10/14/17 15:41 Expected date of discharge: 10/17/17 Attending physician: Noah Momin MD Consults: 10/15/17 09:57 Consult Physician Routine Consulting Provider: Clarence Watson Consult Reason/Comments: copd exacerbation Do you want consulting provider notified?: Yes 10/15/17 11:21 Consult Physician Routine Consulting Provider: Miller Hogan Consult Reason/Comments: performed heart cath Do you want consulting provider notified?: Yes Primary care physician: Stated None Hospital Course: This is a 67-year-old male patient of Dr. Jack with past medical history for COPD, celiac disease, diabetes mellitus type 2, hepatitis C history , hypertension, known coronary artery disease. Patient was admitted to the hospital at [facility] on October 11 due to increasing shortness of breath worsening with exertion along with orthopnea and PND for the past 2 days and using 2 pillows at night. He follows with Dr. Gomez his rope silica machine operator and Dr. Garcia, hide splitter. Patient was seen by his primary care physician and had an EKG done that showed some changes in the inferior lateral leads and patient was instructed to come in the hospital for further evaluation. Patient was initially started on heparin drip for angina and subsequent restarted on Solu-Medrol for COPD exacerbation patient was maintained on nebulizer treatments the patient continued to have chest pain for which and or was increased to 60 mg and Coreg was added. He was followed by cardiology and recommended the patient undergo heart catheterization. His chest x-ray at [facility] showed COPD. He underwent a heart catheterization that showed intermediate disease involving the mid LAD that seems unchanged compared to previous angiographically. Elevated left ventricular end-diastolic pressure. Recommendations from cardiology was to maximize medical treatment. We have maintained him on Coreg and increase dose of Imdur. Patient continues to have shortness of breath for which we'll add in consult with Dr. CHRIS Watson which is his pulmonary doctor. Patient was seen by Dr. Seay at [facility]. We'll also give a stat dose of Solu-Medrol and continue oral prednisone for tomorrow, scheduled nebulizer treatments and as needed and antibiotics started. 10/16: Patient has heart rate running in the 30s and 40s. Cardiology has decreased Coreg to 6.25 mg twice daily. Patient has been afebrile, breathing sounds are improving. Pulse ox is 94% on room air. Patient does have hyperglycemia secondary to steroids. He is continued on prednisone 60 mg daily. Patient is followed by Dr. Seay Anticipate discharge home tomorrow. 10/17: Patient's heart rate was again low and Coreg has been discontinued by cardiology. Patient's breathing status is stable and he is anxious to go home. Patient will be discharged home today in stable condition. Discharge diagnoses: 1. Chest pain status post heart catheterization showing intermediate disease involving the mid LAD unchanged from prior study. 2. Acute exacerbation of COPD. 3. Hypertension. 4. Hyperlipidemia. 5. Psoriasis, not on DMARD. 6. Diabetes mellitus type 2. With hyperglycemia secondary to steroids Discharge plan: Return home Impression and plan of care have been directed as dictated by the signing physician. Mirta Rdz nurse practitioner acting as scribe for signing physician. Patient Condition at Discharge: Good Plan - Discharge Summary Discharge Rx Participant: Yes New Discharge Prescriptions: New Doxycycline Monohydrate [Vibramycin] 100 mg PO BID #10 capsule Furosemide [Lasix] 20 mg PO DAILY #30 tab Isosorbide Mononitrate ER [Imdur] 60 mg PO DAILY #30 tab.er.24h Lisinopril 40 mg PO DAILY #60 tab predniSONE 10 mg PO DAILY 9 Days #20 tab Continue Albuterol Inhaler [Ventolin Hfa Inhaler] 1 - 2 puff INHALATION RT-Q6H PRN PRN Reason: Shortness Of Breath Pravastatin Sodium [Pravachol] 20 mg PO HS Montelukast [Singulair] 10 mg PO HS Budesonide-Formot 160-4.5 Mcg [Symbicort 160-4.5 Mcg Inhaler] 2 puff INHALATION RT-BID Ramipril [Altace] 10 mg PO DAILY amLODIPine [Norvasc] 5 mg PO DAILY Omeprazole [PriLOSEC] 20 mg PO AC-BRKFST Insulin Aspart (For Pump) [NovoLOG (For Pump)] 0.01 unit SQ-PUMP CONTINUOUS Discontinued Isosorbide Mononitrate [Isosorbide Mononitrate ER] 30 mg PO DAILY Lisinopril [Prinivil] 10 mg PO DAILY Discharge Medication List Albuterol Inhaler [Ventolin Hfa Inhaler] 1 - 2 puff INHALATION RT-Q6H PRN [History] Budesonide-Formot 160-4.5 Mcg [Symbicort 160-4.5 Mcg Inhaler] 2 puff INHALATION RT-BID 05/06/14 [History] Montelukast [Singulair] 10 mg PO HS 05/06/14 [History] Pravastatin Sodium [Pravachol] 20 mg PO HS 05/06/14 [History] Insulin Aspart (For Pump) [NovoLOG (For Pump)] 0.01 unit SQ-PUMP CONTINUOUS [History] Omeprazole [PriLOSEC] 20 mg PO AC-BRKFST 10/14/17 [History] Ramipril [Altace] 10 mg PO DAILY 10/14/17 [History] amLODIPine [Norvasc] 5 mg PO DAILY 10/14/17 [History] Doxycycline Monohydrate [Vibramycin] 100 mg PO BID #10 capsule 10/17/17 [Rx] Furosemide [Lasix] 20 mg PO DAILY #30 tab 10/17/17 [Rx] Isosorbide Mononitrate ER [Imdur] 60 mg PO DAILY #30 tab.er.24h 10/17/17 [Rx] Lisinopril 40 mg PO DAILY #60 tab 10/17/17 [Rx] predniSONE 10 mg PO DAILY 9 Days #20 tab 10/17/17 [Rx] Follow up Appointment(s)/Referral(s): Miller Hogan MD [STAFF PHYSICIAN] - 10/22/17 1:45 pm Sara Seay DO [Doctor of Osteopathic Medicine] - 1 Week Alexander Jack MD [REFERRING] - 10/31/17 1:15 pm Patient Instructions/Handouts: Lisinopril (By mouth), Furosemide (By mouth), Doxycycline (By mouth), Prednisone (By mouth), Isosorbide Mononitrate (By mouth) , Chest Pain (DC) Discharge Disposition: HOME SELF-CARE
== END 2017-10-17 11:15 | disposition home or self-care (01) | DRG 287 ==
LOC: 6ICU 15:41 → 6SEL 16:46 → 5MS5E 10-15 14:22
PROVIDERS: ADMIT Internal Medicine; ATTEND Internal Medicine
PROC: B2111ZZ Fluoroscopy of Multiple Coronary Arteries using Low Osmolar Contrast (ICD-10-PCS; 2017-10-14)
PROC: 4A023N7 Measurement of Cardiac Sampling and Pressure, Left Heart, Percutaneous Approach (ICD-10-PCS; principal; 2017-10-14 17:30)
DX: I25.119 Atherosclerotic heart disease of native coronary artery with unspecified angina pectoris (principal); J44.1 Chronic obstructive pulmonary disease with (acute) exacerbation; J45.51 Severe persistent asthma with (acute) exacerbation; B19.20 Unspecified viral hepatitis C without hepatic coma; E11.65 Type 2 diabetes mellitus with hyperglycemia; E78.5 Hyperlipidemia, unspecified; F17.210 Nicotine dependence, cigarettes, uncomplicated; I10 Essential (primary) hypertension; I27.20 Pulmonary hypertension, unspecified; K90.0 Celiac disease; L40.9 Psoriasis, unspecified; T38.0X5A Adverse effect of glucocorticoids and synthetic analogues, initial encounter; R00.1 Bradycardia, unspecified; E66.9 Obesity, unspecified; E11.51 Type 2 diabetes mellitus with diabetic peripheral angiopathy without gangrene; K57.90 Diverticulosis of intestine, part unspecified, without perforation or abscess without bleeding; Z68.29 Body mass index [BMI] 29.0-29.9, adult; Z79.4 Long term (current) use of insulin; Z79.51 Long term (current) use of inhaled steroids; Z79.899 Other long term (current) drug therapy; Z96.41 Presence of insulin pump (external) (internal); Z90.49 Acquired absence of other specified parts of digestive tract; Z88.1 Allergy status to other antibiotic agents; Z88.0 Allergy status to penicillin; Z83.3 Family history of diabetes mellitus; Z80.0 Family history of malignant neoplasm of digestive organs; Z82.49 Family history of ischemic heart disease and other diseases of the circulatory system
CPT/HCPCS: 80048; 84443; 85027; 93458; 94640; 94760

== ENCOUNTER 2019-07-21 10:52 | Day surgery (SDC) | payer BC ==
[2019-07-15 15:51] VITALS: BMI 29.1
[~2019-07-21 10:52] MED LIST: ALPRAZolam 0.25 MG TAB PO PRN; ALPRAZolam 0.5 MG TAB PO PRN; ASPIRIN 325 MG TAB PO STA; ATORVASTATIN 80 MG TAB PO STA; NITROGLYCERIN SL TABS 0.4 MG TAB SUBLINGUAL PRN; SODIUM CHLORIDE 0.9% 1,000 ML in EMPTY BAG 1 BAG IV ONE
[2019-07-21 11:24] LABS: Glucose,Whole Blood 90 mg/dL (75-99)
[2019-07-21 11:28] VITALS: RESP 16; TEMP 97.7
[2019-07-21] MEDS ORDERED: VERAPAMIL 2.5 MG/ML 2 ML AMP ONE (11:55)
[2019-07-21] MEDS ORDERED: LIDOCAINE 1% INJ 10MG/ML (20 ML MDV) ONE (11:55)
[2019-07-21] MEDS ORDERED: fentaNYL (PF) 50 MCG/ML 2 ML AMP ONE (11:55)
[2019-07-21] MEDS ORDERED: fentaNYL (PF) 50 MCG/ML 2 ML AMP IV ONE (12:05)
[2019-07-21] MEDS ORDERED: LIDOCAINE 1% INJ 10MG/ML (20 ML MDV) SQ ONE (12:11)
[2019-07-21] MEDS ORDERED: VERAPAMIL SYRINGE (5 MG/10 ML) INTRAARTER ONE (12:12)
[2019-07-21] MEDS ORDERED: NITROGLYCERIN 1000MCG/10ML SYRINGE INTRACORON ONE (12:21)
[2019-07-21] MEDS ORDERED: HEPARIN SODIUM 1,000 UN/ML (10ML VL) ONE (12:23)
[2019-07-21] MEDS ORDERED: IOPAMIDOL-370 125ML BTL INJ ONE (12:25)
[2019-07-21] MEDS ORDERED: RX INFO: IV CONTRAST WAS GIVEN 1 EACH MISC MISCELLANE PRN (12:34)
[2019-07-21] MEDS ORDERED: SODIUM CHLORIDE 0.9% 1,000 ML IV SCH (12:45)
[2019-07-21] MEDS ORDERED: Insulin Aspart (For Pump) 100 UNIT/ML VIAL SQ-PUMP SCH (12:45)
[2019-07-21 12:55] LABS: Glucose,Whole Blood 97 mg/dL (75-99)
[2019-07-21 15:50] VITALS: BP 139/65
[2019-07-21 17:21] LABS: Glucose,Whole Blood 134 mg/dL (75-99)
[2019-07-21 17:42] VITALS: PULSE 69
--- NOTE | 2019-07-21 17:59 | CC ---
CARDIAC CATHETERIZATION REPORT DATE OF SERVICE: 07/21/2019 Mr. Solo is a 69-year-old male with a known history of hypertension, hyperlipidemia, diabetes mellitus, history of coronary artery disease who presented with symptoms of progressive dyspnea on exertion. In view of that, recommendation was made regarding cardiac catheterization. The procedure, its risks and complications were discussed with the patient, who was in full understanding and agreement. PROCEDURE: Patient was brought to the labor relations manager in a fasting semi-sedated state. After receiving fentanyl and Benadryl and achieving a moderate conscious sedated state, using Xylocaine anesthesia and Seldinger technique, a 6-Czech sheath was introduced in the right radial artery. Selective right and left coronary angiography was performed using 5- Czech 3.5 bend, right and left Romana catheters. Multiple views were taken of the arteries, including hemiaxial views. Following that, the 5-Czech left Romana was used to cross the aortic valve and pressures were calculated. Following that, catheter and sheath were removed. Hemostasis was obtained with deployment of a TR band. There was no immediate complication. Patient was returned to his room in stable condition. Of note, the patient received 5000 units of intravenous heparin as well as intra-arterial verapamil. FINDINGS: LEFT MAIN: This is a short-sized vessel bifurcating into left circumflex and left anterior descending artery. The left main coronary artery has no evidence of high-grade stenosis. LEFT ANTERIOR DESCENDING ARTERY: This is a large-sized vessel reaching toward the apex with a wrap around the apex segment giving rise to 2 diagonal branches. The left anterior descending artery at the takeoff of the second diagonal branch has a 40% to 50% plaque with no progression compared to 2018. The rest of the vessel has no high- grade stenosis. LEFT CIRCUMFLEX: This is a nondominant vessel giving rise to 3 obtuse marginal branches. The third obtuse marginal branch has a 40% to 50% plaque in the proximal segment without any evidence of high-grade stenosis. RIGHT CORONARY ARTERY: This is a dominant vessel bifurcating into PDA and posterolateral segment and branches. The right coronary in the mid segment has 20% to 30% plaque without any evidence of high-grade stenosis. HEMODYNAMICS: There was no gradient across the aortic valve. The left ventricular end-diastolic pressure was 16 to 20 mmHg. CONCLUSION: 1. Moderate disease in the LAD and the left circumflex with no progression compared to 2018. 2. Mild disease in the right coronary artery. RECOMMENDATIONS: In view of findings and anatomy, I have recommended continued medical therapy with aggressive coronary risk modifications that have been initiated. Those findings and recommendation were discussed with the patient, and he is in full understanding and agreement. Duration of procedure was 18 minutes. KARYN / LESTER: [id number] /
--- NOTE | 2019-07-21 18:05 | LTR ---
July 21, 2019 To: Dr. Alexander Jack Re: Daquan Solo (48) Dear Dr. Jack, I had the pleasure of performing cardiac catheterization on Mr. Solo at [facility] today. A full copy of the procedure note will be forwarded to you. In brief he was found to have moderate disease in the LAD and left circumflex with mild disease in the right coronary artery with no progression of disease compared to 2018. Based on those findings, I have recommended continued medical therapy with the aggressive coronary risk modifications you have initiated. Thank you again for allowing me to participate in his care. Please feel free to call with any questions. Sincerely yours, Fe Gomez M.D. KARYN / LESTER: [id number] /
[2019-07-21] MEDS ORDERED: MONTELUKAST 10 MG TAB PO SCH (21:00)
[2019-07-22] MEDS ORDERED: ATORVASTATIN 20 MG TAB PO SCH (09:00)
[2019-07-22] MEDS ORDERED: ASPIRIN 81 MG PO SCH (09:00)
[2019-07-22] MEDS ORDERED: ISOSORBIDE MONONITRATE ER 60 MG TAB.ER.24H PO SCH (09:00)
[2019-07-22] MEDS ORDERED: LISINOPRIL 20 MG TAB PO SCH (09:00)
[2019-07-22] MEDS ORDERED: amLODIPine 5 MG TAB PO SCH (09:00)
== END 2019-07-21 17:42 | disposition home or self-care (01) ==
LOC: CATHCVL 10:52
PROVIDERS: ATTEND Internal Medicine Interventional Cardiology
DX: I25.10 Atherosclerotic heart disease of native coronary artery without angina pectoris (principal); R94.39 Abnormal result of other cardiovascular function study; I10 Essential (primary) hypertension; E11.51 Type 2 diabetes mellitus with diabetic peripheral angiopathy without gangrene; E78.00 Pure hypercholesterolemia, unspecified; E78.5 Hyperlipidemia, unspecified; I65.23 Occlusion and stenosis of bilateral carotid arteries; Z87.891 Personal history of nicotine dependence; Z79.82 Long term (current) use of aspirin; Z79.4 Long term (current) use of insulin; Z79.51 Long term (current) use of inhaled steroids; Z79.899 Other long term (current) drug therapy; Z88.0 Allergy status to penicillin
CPT/HCPCS: 93458; C1769; C1894; J2001; J3010; Q9967

== ENCOUNTER → 2022-02-28 | Day surgery (SDC) | payer OTHER ==
[~2022-02-28] MED LIST changes: +ASPIRIN 81 MG PO SCH; +ATORVASTATIN 20 MG TAB PO SCH; +HEPARIN SODIUM 1,000 UN/ML (10ML VL) IV ONE; +HEPARIN SODIUM,PORCINE 10,000 UNIT in SODIUM CHLORIDE 0.9% 1,000 ML IRRIGATION PRN; +HEPARIN SODIUM,PORCINE 2,500 UNIT in SODIUM CHLORIDE 0.9% 250 ML IRRIGATION PRN; +IOPAMIDOL-370 125ML BTL INJ ONE; +ISOSORBIDE MONONITRATE ER 60 MG TAB.ER.24H PO SCH; +LIDOCAINE 1% INJ 10MG/ML (30 ML VIAL-PF) SQ ONE; +RX INFO: IV CONTRAST WAS GIVEN 1 EACH MISC MISCELLANE PRN; +SODIUM CHLORIDE 0.9% 1,000 ML IV SCH; -SODIUM CHLORIDE 0.9% 1,000 ML in EMPTY BAG 1 BAG IV ONE; +SODIUM CHLORIDE 0.9% 1,000 ML in EMPTY BAG 1 BAG IV SCH; +VERAPAMIL SYRINGE (5 MG/10 ML) INTRAARTER ONE; +amLODIPine 5 MG TAB PO SCH; +fentaNYL (PF) 50 MCG/ML 2 ML AMP IV ONE; +lisinopriL 20 MG TAB PO SCH
[2022-02-28 10:00] LABS: Glucose,Whole Blood 188 mg/dL (70-110)
[2022-02-28 10:12] LABS: Basophils % (A) 0 %; Eosinophils # (A) 0.1 k/uL (0-0.7); Eosinophils % (A) 1 %; HCT 44.1 % (39.0-53.0); HGB 14.5 gm/dL (13.0-17.5); Lymphocytes # (A) 2.2 k/uL (1.0-4.8); Lymphocytes % (A) 21 %; MCH 28.2 pg (25.0-35.0); MCV 85.4 fL (80.0-100.0); Mean Platelet Volume 7.4; Monocytes # (A) 0.6 k/uL (0-1.0); Monocytes % (A) 6 %; Neutrophils # (A) 7.2 k/uL (1.3-7.7); Neutrophils % (A) 70 %; Platelet Count 253 k/uL (150-450); RBC 5.16 m/uL (4.30-5.90); RDW 14.7 % (11.5-15.5); WBC 10.2 k/uL (3.8-10.6)
[2022-02-28 10:15] VITALS: TEMP 98.5
[2022-02-28 10:28] LABS: African American GFR (CKD) >90 (>60 ml/min/1.73 sqM); Anion Gap 12 mmol/L; Blood Urea Nitrogen 17 mg/dL (9-20); Carbon Dioxide 23 mmol/L (22-30); Chloride 101 mmol/L (98-107); Glucose 201 mg/dL (74-99); Non-African American GFR(CKD) 88 (>60 ml/min/1.73 sqM); Potassium 4.3 mmol/L (3.5-5.1); Sodium 136 mmol/L (137-145)
--- NOTE | 2022-02-28 13:38 | P.CARDCATH ---
Date of Procedure: 02/28/22 Description of Procedure: Cardiac Catheterization: The patient is a 71-year-old male with a history of hypertension, hyperlipidemia and diabetes who has been complaining of progressive episodes of chest discomfort, at times exertional in pattern. Recommendations were made regarding cardiac catheterization, the risks and the complications were discussed with the patient who is in full understanding and agreement. Procedure Description: Patient was brought to slab polisher in fasting semi-sedated state after receiving Fentanyl and Benadryl achieiving moderate conscious sedated state. Using Xylocaine Anesthesia and Seldinger technique, a 6-Comoran sheath was introduced in the right radial artery . Subsequently, selective coronary angiography was performed using a 5-Comoran 3.5 bend Romana catheter. Multiple views of the coronary artery including hemiaxial views were obtained. The left Romana catheter was used to cross the aortic valve and LVEDP was calculated. Following that, catheter and sheath were removed. Hemostasis was obtained with deployment of TR band . There was no immediate complication. Patient was returned to room in stable condition. Of note, the patient received a total of 5000 units of intravenous heparin as well as intra-arterial verapamil. Findings: Left main: This is a large size vessel, bifurcating into LAD and circumflex, left main has no high-grade stenosis LAD: This is a large size vessel, giving rise to a large diagonal branch, the LAD has mild disease throughout its course of 20-30% with no high-grade stenosis Left circumflex: This is a nondominant vessel giving rise to a large obtuse marginal branch, the left circumflex has mild disease of 20-30% RCA: This is a dominant vessel, bifurcating distally into PDA and PLV, the mid RCA has 20-30% plaque with no high-grade stenosis. Left Ventriculogram: Not performed Hemodynamics: There was no gradient across the aortic valve, LVEDP was 14-16 mmHg Conclusion: 1. Mild triple vessel disease 2. Right dominance 3. No significant progression compared to 2020 Recommendations: I have recommended to continue medical therapy with maximal aggressive coronary risks modifications. The findings and the recommendations were discussed with the patient and the family and they were in full understanding and agreement. Duration of sedation is 17 minutes.
[2022-02-28 18:12] VITALS: RESP 16
[2022-02-28 18:16] VITALS: BP 157/70; PULSE 80
== END | disposition home or self-care (01) ==
LOC: CATHCVL 09:34
PROVIDERS: ATTEND Internal Medicine Interventional Cardiology
DX: I25.10 Atherosclerotic heart disease of native coronary artery without angina pectoris (principal); I10 Essential (primary) hypertension; E78.5 Hyperlipidemia, unspecified; E11.9 Type 2 diabetes mellitus without complications
CPT/HCPCS: 93458; 80048; 85025; C1769 ×2; C1894; J2001; J3010; J1644; Q9967

== ENCOUNTER → 2022-04-06 | Outpatient (CLI) | payer OTHER ==
--- NOTE | 2022-04-06 15:20 | CT ---
EXAMINATION TYPE: CT chest wo con DATE OF EXAM: 04/06/2022 COMPARISON: None HISTORY: Hx asthma and COPD CT DLP: 650 mGycm, Automated exposure control for dose reduction was used. CONTRAST: Performed injected with 0 mL of Isovue 300. TECHNIQUE: Axial images were obtained at 5 mm thick sections. Reconstructed images are reviewed on [email or web address] computer in the coronal plane. FINDINGS: Portion of the thyroid visualized is normal. No suspicious lung nodules or focal infiltrates are present. There is a 1.0 cm pretracheal lymph node present. Additional smaller adenopathy is present. The asce nding aorta diameter at the level of the main pulmonary artery is 3.4 cm. The main pulmonary artery diameter at the bifurcation is 2.8 cm. Mild coronary artery calcification is present. Limited CT sections are obtained through the upper abdomen. There is a small hiatal hernia present. T here is some mild thickening of the left adrenal gland measuring 1.2 cm. IMPRESSIONS: 1. There is a 1.0 cm pretracheal lymph node present. No additional suspicious adenopathy. 2. No suspicious hyperinflation peribronchial thickening is evident.
== END | disposition home or self-care (01) ==
LOC: RADCTMAIN 14:30
PROVIDERS: ATTEND Internal Medicine Pulmonary Disease
DX: J44.9 Chronic obstructive pulmonary disease, unspecified (principal); J45.50 Severe persistent asthma, uncomplicated; E11.9 Type 2 diabetes mellitus without complications
CPT/HCPCS: 71250